=== PATIENT | female | born 1945 | race Caucasian/White ===

== ENCOUNTER 2020-06-21 15:40 | Emergency (ER) | payer MEDICARE ==
[~2020-06-21] VITALS: Ht 162.6 cm; Wt 79.0 kg
--- NOTE | 2020-06-21 16:17 | NUR ---
Dr. Kaminski in ED to assess patient and to obtain consent. Called patients , Zac Lozano, who gave verbal consent for both PICC line and TDC. Tj RN, PICC line nurse, stated that he would be coming down to place as soon as he could. Patient will be going to IR before PICC is placed.
[2020-06-21] MEDS ORDERED: heparin 1,000unit/ml 10ml vial 10 ML ONE (16:55)
[2020-06-21] MEDS ORDERED: LIDOcaine 1%/PF 5ML 10 MG/ML VIAL ONE (16:55)
--- NOTE | 2020-06-21 17:15 | NUR ---
Pt returned from IR after having TDC placed by Provider. Pt did not have any medications administered during the provider.
--- NOTE | 2020-06-21 17:32 | NUR ---
Pt transported to Exam room so [facility] PICC nurse can insert a PICC line in preparation to discharge the patient back to [facility].
[2020-06-21 17:33] VITALS: BP 142/73
--- NOTE | 2020-06-21 18:12 | NUR ---
[facility] PICC LINE RN UNABLE TO PLACE PICC LINE PT DOES NOT HAVE A USEABLE VESSEL IN LEFT ARM. UNABLE TO USE RIGHT SIDE D/T TDC.
--- NOTE | 2020-06-21 18:21 | NUR ---
CALLED REPORT TO RN AT [facility]. INFORMED HER UNABLE TO PLACE PICC, AND DR YONATHAN NUNES. NOTIFIED MAGNO PAREDES OF [facility] TO TDC SITE.
== END 2020-06-21 18:39 | disposition home or self-care (01) ==
LOC: ER 15:41
DX: T82.9XXA Unspecified complication of cardiac and vascular prosthetic device, implant and graft, initial encounter (principal); G93.41 Metabolic encephalopathy; N18.6 End stage renal disease; I50.9 Heart failure, unspecified; I13.2 Hypertensive heart and chronic kidney disease with heart failure and with stage 5 chronic kidney disease, or end stage renal disease; E11.22 Type 2 diabetes mellitus with diabetic chronic kidney disease
CPT/HCPCS: 36581; 70450; 71045; 77001; 93005; 99285; C1750; C1769; J1644; A9270